=== PATIENT | female | born 1960 | race Caucasian/White ===

== ENCOUNTER → 2022-03-02 15:39 | Outpatient (CLI) | payer BC, SELFPAY ==
--- NOTE | ~2022-03-02 | MR_ITS ---
EXAMINATION: MR lumbar spine wo con DATE: 03/02/2022 16:10 INDICATION: Back pain and radiculopathy TECHNIQUE: Magnetic resonance imaging (MRI) of the lumbar spine was performed without intravenous con trast. Sequences included sagittal T2-weighted FSE, sagittal T2-weighted FS FSE, sagittal T1-weighted FSE, and axial T2-weighted FSE. COMPARISON: 04/25/2011 FINDINGS: 6 degrees lumbar levocurvature. 2-3 mm anterolisthesis L4 on L5. Vertebral body heights are normal. M oderate disc height loss at L4-L5. Mild disc height loss at L2-L3, L3-L4 and L5-S1. Marrow signal is normal. The conus medullaris terminates at L1. There is normal signal in the caudal spinal cord. 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 Paravertebral soft tissues are unremarkable. The following disc levels are specifically discussed: T12-L1: The disc does not extend beyond the endplate margin. There is mild bilateral facet joint oste oarthritis. There is no neural foraminal stenosis. There is no central canal stenosis. L1-L2: The disc does not extend beyond the endplate margin. There is mild bilateral facet joint osteo arthritis. There is no neural foraminal stenosis. There is no central canal stenosis. L2-L3: Disc is bulging with annular fissure and small central disc extrusion with disc material exten ding 405 mm cephalad and caudal to the level of the endplates. There is mild bilateral facet joint os teoarthritis. There is moderate right and mild to moderate left neural foraminal stenosis. There is m ild central canal stenosis. L3-L4: Disc is bulging with superimposed left foraminal zone annular fissure and small disc extrusion with disc material extending couple millimeters cephalad and caudal to the level of the endplates.. There is moderate left and mild right facet joint osteoarthritis. There is mild right and moderate le ft neural foraminal stenosis. There is mild central canal stenosis. L4-L5: Disc is mildly bulging with left paracentral annular fissure. There is severe bilateral facet joint osteoarthritis. There is mild bilateral neural foraminal stenosis. There is mild central canal stenosis. L5-S1: The disc does not extend beyond the endplate margin. There is mild right facet joint osteoarth ritis. There is mild bilateral neural foraminal stenosis. There is no central canal stenosis. IMPRESSION: 1. Mild/moderate cervical spondylosis. Reviewed, dictated and finalized at location A.
== END ==
PROVIDERS: PCP Family Medicine; Visit Provider Family Medicine
DX: M48.061 Spinal stenosis, lumbar region without neurogenic claudication (principal); M47.812 Spondylosis without myelopathy or radiculopathy, cervical region
CPT/HCPCS: 72148

== ENCOUNTER → 2023-03-24 12:59 | Outpatient (CLI) | payer BC, SELFPAY ==
--- NOTE | ~2023-03-24 | MR_ITS ---
MRI of the lumbar spine Clinical History: Disorder of nervous system Technique: Axial T2-weighted images, and sagittal T1-weighted, T2-weighted, and and T2 fat-sat images were acquired. Following intravenous administration of 15 cc MultiHance gadolinium, T1-weighted fat- sat imaging was performed in the axial and sagittal planes. Findings: There is no fracture of the lumbar spine. Minimal grade 1 anterolisthesis of L4 over L5 not ed. No suspicious bone marrow signal abnormality seen. At L1-L2, there is no disc bulge or herniation. No spinal canal stenosis or neural foraminal narrowin g. At L2-L3, there is mild degenerative disc narrowing. There is mild diffuse disc bulge and facet arthr opathy. No central canal stenosis. There is moderate to severe right neural foraminal narrowing, and mild to moderate left neural foraminal narrowing. At L3-L4, there is mild degenerative disc narrowing. There is mild diffuse disc bulge and moderate fa cet arthropathy. No central canal stenosis. There is moderate bilateral neural foraminal narrowing, l eft worse than right. At L4-L5, there is disc bulge and severe facet arthropathy. No central canal stenosis. There is mild bilateral neural foraminal narrowing. At L5-S1, there is no disc bulge or herniation. There is severe facet arthropathy. No central canal s tenosis or definite neural foraminal narrowing. Paravertebral soft tissues are unremarkable. No abnormal postcontrast enhancement identified. Impression: Moderate degenerative spondylosis at L2-L3 at L3-L4. Minimal grade 1 anterolisthesis of L4 over L5. Reviewed, dictated and finalized at [facility]. Impression: Moderate degenerative spondylosis at L2-L3 at L3-L4. Minimal grade 1 anterolisthesis of L4 over L5.
--- NOTE | ~2023-03-24 | MR_ITS ---
MRI of the cervical spine Clinical History: Disorder of nervous system Technique: Axial T2-weighted and gradient images, and sagittal T1-weighted, T2-weighted, and STIR brayden ges were acquired. Following intravenous administration of 15 cc MultiHance gadolinium, T1-weighted f at-sat imaging was performed in the axial and sagittal planes. Findings: No fracture or subluxation seen in the cervical spine. There is mild reversal normal cervic al lordosis. There is reactive marrow signal changes due to underlying degenerative disease throughou t the C6-C7 disc space. At C2-C3, there is no disc bulge or herniation. No spinal canal stenosis, cord compression, or neural foraminal narrowing. At C3-C4, there is minimal disc osteophyte complex. No spinal canal stenosis or cord compression. The re is probable minimal left neural foraminal narrowing. Right neural foramen preserved. At C4-C5, there is mild disc osteophyte complex, without ami canal stenosis or cord compression. Th ere is bilateral neural foraminal narrowing, with associated bilateral facet arthropathy. At C5-C6, there is bilateral facet arthropathy resulting in bilateral neural foraminal narrowing, rig ht worse than left. There is minimal disc osteophyte complex. No central canal stenosis or cord compr ession. At C6-C7, there is disc osteophyte complex which minimally flattens the ventral cord on the right stanley e. There is bilateral neural foraminal narrowing. No abnormal signal seen in the spinal cord itself. Paravertebral soft tissues are unremarkable. No ab normal postcontrast enhancement identified. Impression: Mild to moderate degenerative spondylosis overall, as detailed above. Reviewed, dictated and finalized at location . Impression: Mild to moderate degenerative spondylosis overall, as detailed above.
--- NOTE | ~2023-03-24 | MR_ITS ---
MRI of the thoracic spine Clinical History: Disorder of nervous system Technique: Axial T2-weighted and gradient images, and sagittal T1-weighted, T2-weighted, and STIR brayden ges were acquired. Following intravenous administration of 15 cc MultiHance gadolinium, T1-weighted f at-sat imaging was performed in the axial and sagittal planes. Findings: There is no fracture or subluxation of the thoracic spine. Vertebral bodies maintain normal height and alignment. No suspicious bone marrow signal abnormality identified. There are left paracentral to left foraminal disc bulges and disc osteophyte complexes at T8-T9 and T 9-T10. There is advanced degenerative disc narrowing at T7-T8. No ami spinal canal stenosis or cord compression at any level. No abnormal signal seen in the spinal cord itself. Paravertebral soft tissues are unremarkable. No abnormal postcontrast enhancement identified. Impression: Mild degenerative changes at the mid to lower thoracic spine, as detailed above. Reviewed, dictated and finalized at [facility]. Impression: Mild degenerative changes at the mid to lower thoracic spine, as detailed above .
== END ==
PROVIDERS: PCP Family Medicine
DX: G98.8 Other disorders of nervous system (principal); M43.06 Spondylolysis, lumbar region; M43.04 Spondylolysis, thoracic region; M43.02 Spondylolysis, cervical region
CPT/HCPCS: 72156; 72157; 72158; A9577